=== PATIENT | female | born 1980 | race American Indian/Alaskan Native ===

== ENCOUNTER 2018-03-27 13:25 | Emergency (ER) | payer MEDICAID ==
[2018-03-27 13:36] VITALS: BP 112/73
--- NOTE | 2018-03-27 13:52 | Emergency Department Report ---
ED Female HPI - General Chief complaint: Abdominal Pain Stated complaint: ABD PAIN Time Seen by Provider: 03/27/18 13:41 Source: patient Mode of arrival: Ambulatory Limitations: No Limitations - History of Present Illness Initial comments: This is a 37-year-old female who presents with dysuria, vaginal discharge, frequency, and urgency for 2 weeks. Patient reports this feels slightly she is unable to empty her bladder. She has not tried taking anything for symptom relief. Denies low back pain. Admits to suprapubic pain that is a pressure sensation. Last menstrual period 03/12/2018, A2. Reports painful intercourse. States she is with one partner. States has been refused to come with her to the hospital today and she is concerned she possibly has an STD. Denies fever, chest pain, shortness of breath, and low back pain. MD Complaint: vaginal discharge, dysuria, pelvic pain -: week(s) (2 weeks) Radiation: non-radiating Severity: mild Quality: cramping, burning Consistency: intermittent Improves with: none Worsens with: urination Are you Now?: No Last Menstrual Period: 03/12/18 EDC: 12/17/18 Associated Symptoms: denies other symptoms - Related Data Sexually active: Yes : 7 Para: 5 A: 2 Previous Rx's Medication Instructions Recorded Last Taken Type Butalb/Acetamin/Caff 50-325-40 1 tab PO Q6HR PRN #30 tab 07/10/15 Unknown Rx [Fioricet] Ibuprofen [Motrin 600 MG tab] 600 mg PO Q8H PRN #30 tablet 07/10/15 Unknown Rx metroNIDAZOLE 0.75% [Vandazole 1 applicator VG QHS #1 tube 10/08/15 Unknown Rx 0.75% VAGINAL] Nitrofurantoin Monohyd/M-Cryst 100 mg PO BID #10 capsule 03/27/18 Unknown Rx [Macrobid 100 mg Capsule] Phenazopyridine [Pyridium] 200 mg PO TID #6 tab 03/27/18 Unknown Rx metroNIDAZOLE [Metronidazole] 500 mg PO BID #10 tablet 03/27/18 Unknown Rx Allergies Allergy/AdvReac Type Severity Reaction Status Date / Time morphine Allergy Shortness Verified 07/10/15 21:32 of Breath Sulfa (Sulfonamide Allergy Hives Verified 07/10/15 21:32 Antibiotics) ED Review of Systems ROS: Stated complaint: ABD PAIN Other details as noted in HPI Constitutional: denies: chills, fever Respiratory: denies: cough, shortness of breath, wheezing Cardiovascular: denies: chest pain, palpitations, edema, syncope Gastrointestinal: abdominal pain (lower abdominal pain). denies: nausea, vomiting, diarrhea Genitourinary: urgency, dysuria, discharge. denies: hematuria Musculoskeletal: denies: back pain, joint swelling, arthralgia, myalgia Neurological: denies: headache, weakness, paresthesias Psychiatric: denies: anxiety, depression ED Past Medical Hx - Past Medical History Previous Medical History?: No - Surgical History Past Surgical History?: Yes Additional Surgical History: CS - Social History Smoking Status: Current Every Day Smoker Substance Use Type: None - Medications Home Medications: Home Medications Medication Instructions Recorded Confirmed Last Taken Type Butalb/Acetamin/Caff 50-325-40 1 tab PO Q6HR PRN #30 tab 07/10/15 Unknown Rx [Fioricet] Ibuprofen [Motrin 600 MG tab] 600 mg PO Q8H PRN #30 tablet 07/10/15 Unknown Rx metroNIDAZOLE 0.75% [Vandazole 1 applicator VG QHS #1 tube 10/08/15 Unknown Rx 0.75% VAGINAL] Nitrofurantoin Monohyd/M-Cryst 100 mg PO BID #10 capsule 03/27/18 Unknown Rx [Macrobid 100 mg Capsule] Phenazopyridine [Pyridium] 200 mg PO TID #6 tab 03/27/18 Unknown Rx metroNIDAZOLE [Metronidazole] 500 mg PO BID #10 tablet 03/27/18 Unknown Rx ED Physical Exam - General Limitations: No Limitations General appearance: alert, in no apparent distress - Respiratory Respiratory exam: Present: normal lung sounds bilaterally. Absent: respiratory distress - Cardiovascular Cardiovascular Exam: Present: regular rate, normal rhythm, normal heart sounds. Absent: systolic murmur, diastolic murmur, rubs, gallop - GI/Abdominal GI/Abdominal exam: Present: soft, normal bowel sounds. Absent: distended, tenderness, guarding, rebound, rigid, organomegaly, mass - External exam: Present: normal external exam. Absent: erythema, swelling, lesions, lacerations, ecchymosis, bleeding Speculum exam: Present: erythema, vaginal discharge (frothy white malodorous discharge). Absent: cervical discharge, vaginal bleeding, foreign body Bi-manual exam: Present: cervical motion tendernes. Absent: adnexal tenderness , adnexal mass, uterine enlargement, uterine tenderness - Back Exam Back exam: Present: CVA tenderness (L). Absent: muscle spasm, rash noted - Neurological Exam Neurological exam: Present: alert, oriented X3 - Psychiatric Psychiatric exam: Present: normal affect, normal mood - Skin Skin exam: Present: warm, dry, intact, normal color. Absent: rash ED Course Vital Signs 03/27/18 13:34 Temperature 98.8 F Pulse Rate 100 H Respiratory 18 Rate Blood Pressure 112/73 O2 Sat by Pulse 100 Oximetry ED Medical Decision Making - Medical Decision Making This is a 37-year-old -[place] female who presents with dysuria and discharge for 2 weeks. Patient was examined by me. Vitals are stable and in no acute distress. Obtained urinalysis, urine hCg, and wetprep. Wet prep via pelvic exam, results positive for trichomoniasis and clue cells. Urinalysis findings of acute cystitis. Review of results with patient and discuss ER plan. Patient given metronidazole 2 g by mouth once in ER. Start macrobid 100 mg po bid x 5 days, pyridium 200 mg po tid x 2 days, and metronidazole 500 mg by mouth x 5 days. Discharged home in stable condition. Discussed prevention options. F/U with PCP or Health Department. Critical care attestation.: If time is entered above; I have spent that time in minutes in the direct care of this critically ill patient, excluding procedure time. ED Disposition Clinical Impression: Bacterial vaginosis, Urogenital trichomoniasis Acute cystitis Qualifiers: Hematuria presence: with hematuria Qualified Code(s): N30.01 - Acute cystitis with hematuria Disposition: - TO HOME OR SELFCARE Is pt being admited?: No Does the pt Need Aspirin: No Condition: Stable Instructions: Abdominal Pain (ED), Bacterial Vaginosis (ED), Urinary Tract Infection in Women (ED) Additional Instructions: Avoid drinking alcohol while taking antibiotics and for 24 hours after completion. Complete full course of antibiotics as prescribed. Continue safe sexual intercourse. Follow up with Primary Care Provider or health department. Prescriptions: metroNIDAZOLE [Metronidazole] 500 mg PO BID #10 tablet Nitrofurantoin Monohyd/M-Cryst [Macrobid 100 mg Capsule] 100 mg PO BID #10 capsule Phenazopyridine [Pyridium] 200 mg PO TID #6 tab Referrals: PRIMARY CARE, [Primary Care Provider] - 3-5 Days [facility] [Outside] - 3-5 Days [facility] [Outside] - 3-5 Days [facility] [Outside] - 3-5 Days Forms: STI Treatment and Prevention Time of Disposition: 15:07 Print Language: SYRI[place]
[2018-03-27 14:13] LABS: Bacteria,Urine 3+ /HPF (Negative); Bilirubin,Urine NEG (Negative); Blood,Urine MOD (Negative); Color,Urine Yellow (Yellow); Mucus,Urine FEW /HPF; Protein,Urine <15 mg/dL mg/dL (Negative); Urobilinogen,Urine < 2.0 mg/dL (<2.0)
[2018-03-27 14:21] LABS: HCG Qualitative,Urine Negative (Negative)
[2018-03-27] MEDS ORDERED: FLAGYL PO ONE (15:07)
== END 2018-03-27 15:21 | disposition home or self-care (01) ==
LOC: ED 13:25
DX: N30.01 Acute cystitis with hematuria (principal); N76.0 Acute vaginitis; B96.89 Other specified bacterial agents as the cause of diseases classified elsewhere; A59.00 Urogenital trichomoniasis, unspecified; F17.200 Nicotine dependence, unspecified, uncomplicated; Z88.5 Allergy status to narcotic agent; Z88.2 Allergy status to sulfonamides
CPT/HCPCS: 81001; 81025; 87210; 99284